=== PATIENT | male | born 1995 | race Caucasian/White ===

== ENCOUNTER 2022-07-10 22:11 | Inpatient (IN) | payer BC, SELFPAY ==
[2022-07-10 22:42] VITALS: BP 128/70; PULSE 130; TEMP 36.6; O2SAT 96
[2022-07-10] MEDS: cloNIDine HCL 0.1 MG TABLET PO (23:40)
[2022-07-10] MEDS: LORazepam 1 MG TABLET PO (23:41)
[2022-07-11 00:42] VITALS: BMI 25.0
--- NOTE | 2022-07-11 05:24 | PC.NURSE ---
admission note for 07/10/22-pt was a referral from [facility] via the [facility] ER. nurse to nurse, collateral information obtained prior to admission. legal 12B, declining to sign CV when offered. dx: unspecified schizophrenia. patient was cooperative to interview but was actively responding/preoccupied with AH although did not acknowledge this when asked. denied HI thinking but appeared guarded. slow to respond to questions, thought blocking. no significant medical history noted but did have admission heart rate of 130. provider notified and patient accepted clonidine. ALEX + for marijuana. denies alcohol or other substance use. no current medications. did accept flu shot as well as ativan at bedtime. treatment plan initiated. safety tool done. oriented to unit.
[2022-07-11 09:45] LABS: Estimated Average Glucose 97 mg/dL
--- NOTE | 2022-07-11 09:57 | HO.PSYADMNOT ---
HPI Date of Service: 07/11/22 Chief Complaint: F 31 Unspecified Schizophrenia Spectrum and Other Sources of Information: patient interviewed, chart reviewed and crisis/core team assessment reviewed HPI Subjective Notes: Valera Warning (given and understood) and Section 12B Narrative: Mr. Nugent is a 26 year-old male who was brought in by father to [facility] ED as pt reported suicidal ideation with plan to cut his wrist. Pt apparently has been presenting with paranoid and psychosis since February of this year. He recently admitted to [facility] on 06/17/22 in setting of psychosis, and suicidal ideation. In the ED, his utox is positive for cannabis. On the unit, pt reports he has been worried about the state of the world. Pt presents as suspicious and asks to verify information with him and he suspect records are not accurate. Pt explains that he worries about climate change and future of planet earth. I then reports that he thinks the world will be better off because of him. When asked in what way, pt states he thinks problems will be solve even climate change if he is not around. Pt denies any plan or intent to harm himself at this point. He reports he had just one intrusive thought when he was holding the knife to his wrist when his father stopped him and asked him to bring him to the hospital. He denies that he heard a voice telling him to hurt himself. He also denies visual or auditory hallucinations but throughout our interview, pt was mumbling and whispering things to someone who was not there. He later reported that his intrusive thought might have been a relationship issue. He mentions a partner but became paranoid when asked the name stating why do you need to know all this information? Pt reports he has not notice any change in behavior. 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 He reports he is sure I will not have these intrusive thoughts to harm myself. He states he does not want to be here in the hospital and that he can follow up with treatment in the community. Pt was given valera warning and shows understanding. Past Psychiatric History: Inpt: [facility] 06/17/2022 Medical Evaluation Reviewed: Yes [facility] Medical History No active medical problems Diagnostics Vital Signs (24Hr): Vital Signs - 24 hr 07/10/22 22:42 Temperature 97.9 F Pulse Rate 130 H Blood Pressure 128/70 Pulse Oximetry 96 Oxygen Delivery Method Room Air BMI result Body Mass Index 25.0 Labs Labs: Laboratory Results - last 48 hr 07/11/22 09:03 Estimat Average Glucose 97 Hemoglobin A1c % 5.0 Meds/Allergies Allergies Allergies Allergy/AdvReac Type Severity Reaction Status Date / Time No Known Allergies Allergy Verified 07/10/22 22:51 Mental Status Exam Mental Status Exam Narrative: Appearance: casually groomed, fair hygiene, in NAD behavior: guarded and suspicious Psychomotor: restless at times but no overt agitation or retardation noted Speech: clear, delayed in response rate, spontaneous TP: thought blocking TC: having intrusive thoughts, worried about state of the world and thinks world will be better without him AH/VH: denies but appears internally preoccupied Delusions: appears suspicious, paranoid Mood: fine Affect: constricted, fearful, hypervigilant Insight/judgment: poor x 2. Memory/cog: alert, oriented x 3. Assessment & Plan Assessment & Plan (1) Schizophrenia, acute: Status: Acute Code(s): F23 - Brief psychotic disorder Plan Mr. Nugent is a 26 year-old male with hx of psychosis and paranoid since February of this year. 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 Pt appears internally preoccupied, very suspicious, guarded, paranoid and not forthcoming with extend of delusional content. We discussed risks, benefits and alternative treatment options PLAN 1. Admit to M3, Sect 12b , 15 minutes checks 2. Offer risperidone, pt understands he can decline. 3. Obtain collateral information 4. Aftercare planning. Patient educated on: diagnosis and medication risk/benefits Informed Consent: understands Reason for continued inpatient stay Substantial Risk for: harm to self
[2022-07-11 09:58] VITALS: BP 112/65; PULSE 128; RESP 19; TEMP 36.9; O2SAT 98
[2022-07-11 10:03] LABS: Cholesterol 246 mg/dL; HDL Cholesterol 53 mg/dL; LDL Cholesterol Calculated 178 mg/dl; Magnesium 2.3 mg/dL (1.6-2.6); Triglycerides 75 mg/dL
[2022-07-11 10:19] LABS: Free T4 (Free Thyroxine) 1.38 ng/dL (0.71-1.85)
[2022-07-11 10:55] LABS: Folate 5.3 ng/mL (> or = 4.0); Vitamin B12 1144 pg/mL (200-900)
--- NOTE | 2022-07-11 12:47 | P.CONHOSP_ITS ---
History of Present Illness Data of Consult Service Date: 07/11/22 Requesting physician: Luh Joshi Primary Care Provider: Unknown Physician HPI Reason for consult: medical H&P 26-year-old male without significant medical history admitted to Psychiatry for paranoia and anxiety. He has no medical complaints. Denies any shortness of breath, chest pain, palpitations. Has been tachycardic since arrival up to 128 however has been notably anxious. EKG at [facility] from which he was transferred showed sinus tachycardia, rate 122. TSH 1.24, electrolytes within normal limits. He does smoke marijuana but denies any other illicit drug use. No alcohol use. No history of blood clots. Review of Systems Review of Systems: General: No fevers, malaise, unintentional weight loss HEENT: No blurred vision, diplopia. No sore throat, nasal congestion, rhinorrhea, sinus pain, ear pain Cardiovascular: No chest pain, palpitations, or leg edema Respiratory: No shortness of breath, wheezing, cough GI: No abdominal pain, nausea, vomiting, diarrhea, constipation, melena, hematochezia : No dysuria, hematuria, increased urinary frequency, decreased urinary output MSK: No myalgia, back pain Neuro: No headaches, weakness, paresthesias Psych: +anxiety Skin: No rashes or lesions PMFSH Medical History No active medical problems Family History (Updated 07/11/22 @ 12:50 by SAAD Hernandez) Other No pertinent family history Social History Household Members: Family Housing: House Do you presently have visiting nurse or other home services: No Patient Tobacco Use Status: Never used Tobacco e-Cigarette/Vaping Use: Never Used Substance Use Type: Marijuana Substance Use Frequency: Daily Last Used Substance: Just Prior to Admission Currently Displaying Signs/Symptoms of Drug Intoxication Withdrawal: No Have you been hit, kicked, punched, or otherwise hurt by someone within the past year? If so, by whom?: No Do you feel safe in your current relationship?: No Current Relationship Is there a partner from a previous relationship who is making you feel unsafe now?: No Are you made to feel afraid or neglected: No Spiritual Healthcare Practices: none identified Islam Healthcare Practices: none identified Cultural Healthcare Practices: none identified Advance Directives: No Advance Directives Information Provided: No Do you have thoughts of harming others: None Do you have a plan to hurt others: No Plan Recently lost weight without trying: No How much weight loss: Not applicable Eating poorly because of decreased appetite: No Nutrition screen score: 0 Nutrition Risks: No Nutritional Risk Poor oral hygiene: No service: No Sexual orientation: Straight/Heterosexual Meds Allergies Allergy/AdvReac Type Severity Reaction Status Date / Time No Known Allergies Allergy Verified 07/10/22 22:51 Active Medications: Current Medications Acetaminophen (Acetaminophen 325 Mg Tablet) 650 mg PO Q6H PRN PRN Reason: Headache/Pain Mild Scale (1-3) Al Hydroxide/Mg Hydroxide (Magnesium Hydrox/Alum Hydrox 30 Ml Oral.Susp) 30 ml PO Q6H PRN PRN Reason: Heartburn/Nausea Clonidine HCl (Clonidine Hcl 0.1 Mg Tablet) 0.1 mg PO BID PRN; Protocol PRN Reason: hyperarousal, anxiety Last Admin: 07/10/22 23:40 Dose: 0.1 mg Hydroxyzine HCl (Hydroxyzine Hcl 25 Mg Tablet) 25 mg PO Q6H PRN PRN Reason: Anxiety Lorazepam (Lorazepam 1 Mg Tablet) 1 mg PO BID PRN PRN Reason: anxiety, agitation Last Admin: 07/10/22 23:41 Dose: 1 mg Magnesium Hydroxide (Milk Of Magnesia 30 Ml Oral.Susp) 30 ml PO DAILY PRN PRN Reason: Constipation Risperidone (Risperidone 0.5 Mg Tablet) 0.5 mg PO BID PRN PRN Reason: paranoia, agitation, psychosis Trazodone HCl (Trazodone Hcl 50 Mg Tablet) 50 mg PO BEDTIME PRN PRN Reason: Insomnia Physical Exam Vital Signs and Narrative: Vital Signs: Last Vital Signs Temp 98.5 F 07/11/22 09:58 Pulse 128 H 07/11/22 09:58 Resp 19 07/11/22 09:58 BP 112/65 07/11/22 09:58 Pulse Ox 98 07/11/22 09:58 O2 Del Method 07/11/22 09:58 BMI result Body Mass Index 25.0 Constitutional - Awake and Alert, No apparent distress Eyes - PERRLA, EOMI Cardiovascular - S1S2, tachycardic, regular rhythm, No edema Respiratory - Normal lung expansion, Normal respiratory effort, No respiratory distress, CTA bilaterally Gastrointestinal - NT / ND; +BS; No rebound or guarding Extremities - no calf tenderness bilaterally, no swelling Musculoskeletal - Normal inspection, normal ROM Skin - Warm/Dry Neurological - Alert & oriented x3, CN II-XII in tact, 5/5 strength BUE and BLE Psychological - Appropriate affect Results Labs Labs: Laboratory Results - last 24 hr 07/11/22 07/11/22 07/11/22 09:03 09:03 09:03 Estimat Average Glucose 97 Hemoglobin A1c % 5.0 Magnesium 2.3 Triglycerides 75 Cholesterol 246 LDL Cholesterol, Calc 178 HDL Cholesterol 53 Vitamin B12 1144 H Folate 5.3 TSH 1.20 Free T4 1.38 Assessment and Plan (1) Paranoia: Status: Acute (2) Anxiety: Status: Acute (3) Tachycardia: Status: Acute Plan 26-year-old male without significant medical history admitted to Psychiatry for paranoia and anxiety with consult placed for medical H&P. # anxiety/paranoia -plan per Psychiatry # sinus tachycardia-likely etiology anxiety -HR on exam ranging 100-122 manual radial pulse is -EKG at [facility] showed sinus tach, rate 108, no ST/T-wave abnormalities -thyroid function normal, electrolytes normal, no anemia -patient declines further lab work at this time and refuses additional EKG. Recommend treating anxiety, and following heart rate. Discussed with the patient if no improvement, further workup should be done. He is asymptomatic at this time and is advised to contact staff if he develops any shortness of breath, chest pain, palpitations, or lightheadedness. Again this is likely related to his anxiety/paranoia. Thank you for allowing me to participate in this consult. Signing off at this time. Please do not hesitate to call for further questions. COnsult PRN if no imrpovements in heart rate once anxiety/paranoia is better controlled.
[2022-07-11 20:10] VITALS: BP 111/69; PULSE 118; RESP 16; O2SAT 99
[2022-07-12 08:00] VITALS: BP 106/80; PULSE 96; TEMP 36.6; O2SAT 97
--- NOTE | 2022-07-12 12:17 | P.PNPSI_ITS ---
Subjective Subjective Date of Service: 07/12/22 Reason For Visit: F 31 Unspecified Schizophrenia Spectrum and Other Subjective Notes: Section 12B Interim History: Pt reports he does not think he needs to be here. He reports he only had one intrusive thought when holding a knife. He reports 3 weeks ago when he had similar situation he also had an Intrusive thought and again hold a knife. He reports both times his parents intervened and brought him to the hospital. He declines any treatment stating I don't need it. He asked nurse last night if he was expected to have sex with anyone. When asked today, he states I know this is a hospital, but do I have to have sex with anyone? Today he denies any plan or intent to hurt himself but is not able to explain what is different. Pt mumbles to someone who is not there, when asked pt very guarded. He states he does not understand why this expert medical writer or others are concern about him holding a knife and trying to harm himself. He states I will not have those thoughts again, yet not able to explain how he has had them twice in less than one month. Review of Systems Review of Systems General: No fevers, malaise, unintentional weight loss HEENT: No blurred vision, diplopia. No sore throat, nasal congestion, rhinorrhea, sinus pain, ear pain Cardiovascular: No chest pain, palpitations, or leg edema Respiratory: No shortness of breath, wheezing, cough GI: No abdominal pain, nausea, vomiting, diarrhea, constipation, melena, hematochezia : No dysuria, hematuria, increased urinary frequency, decreased urinary output MSK: No myalgia, back pain Neuro: No headaches, weakness, paresthesias Psych: +anxiety Skin: No rashes or lesions Yes all other systems are reviewed and are negative Mental Status Exam Mental Status Exam Narrative: Appearance: casually groomed, fair hygiene, in NAD behavior: guarded and suspicious Psychomotor: restless at times but no overt agitation or retardation noted Speech: clear, delayed in response rate, spontaneous TP: thought blocking TC: having intrusive thoughts, worried about state of the world and thinks world will be better without him AH/VH: denies but appears internally preoccupied Delusions: appears suspicious, paranoid Mood: fine Affect: constricted, fearful, hypervigilant Insight/judgment: poor x 2. Memory/cog: alert, oriented x 3. Diagnostics Vital Signs (24Hr): Vital Signs - 24 hr 07/12/22 20:05 Temperature 98.4 F Pulse Rate 119 H Respiratory Rate 18 Blood Pressure 120/76 Pulse Oximetry 100 Oxygen Delivery Method Room Air BMI result Body Mass Index 25.0 Labs Labs: Laboratory Results - last 48 hr 07/11/22 07/11/22 07/11/22 09:03 09:03 09:03 Estimat Average Glucose 97 Hemoglobin A1c % 5.0 Magnesium 2.3 Triglycerides 75 Cholesterol 246 LDL Cholesterol, Calc 178 HDL Cholesterol 53 Vitamin B12 1144 H Folate 5.3 TSH 1.20 Free T4 1.38 Medications Medications Current Medications Acetaminophen (Acetaminophen 325 Mg Tablet) 650 mg PO Q6H PRN PRN Reason: Headache/Pain Mild Scale (1-3) Al Hydroxide/Mg Hydroxide (Magnesium Hydrox/Alum Hydrox 30 Ml Oral.Susp) 30 ml PO Q6H PRN PRN Reason: Heartburn/Nausea Clonidine HCl (Clonidine Hcl 0.1 Mg Tablet) 0.1 mg PO BID PRN; Protocol PRN Reason: hyperarousal, anxiety Last Admin: 07/12/22 21:06 Dose: 0.1 mg Hydroxyzine HCl (Hydroxyzine Hcl 25 Mg Tablet) 25 mg PO Q6H PRN PRN Reason: Anxiety Lorazepam (Lorazepam 1 Mg Tablet) 1 mg PO BID PRN PRN Reason: anxiety, agitation Last Admin: 07/10/22 23:41 Dose: 1 mg Magnesium Hydroxide (Milk Of Magnesia 30 Ml Oral.Susp) 30 ml PO DAILY PRN PRN Reason: Constipation Risperidone (Risperidone 0.5 Mg Tablet) 0.5 mg PO BID PRN PRN Reason: paranoia, agitation, psychosis Risperidone (Risperidone 1 Mg Tablet) 1 mg PO BID ACE Last Admin: 07/12/22 21:25 Dose: Not Given Trazodone HCl (Trazodone Hcl 50 Mg Tablet) 50 mg PO BEDTIME PRN PRN Reason: Insomnia Allergies Allergies Allergy/AdvReac Type Severity Reaction Status Date / Time No Known Allergies Allergy Verified 07/10/22 22:51 Assessment & Plan Assessment & Plan (1) Schizophrenia, acute: Status: Acute Code(s): F23 - Brief psychotic disorder Plan Mr. Nugent is a 26 year-old male with hx of psychosis and paranoid since February of this year. 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 Pt appears internally preoccupied, very suspicious, guarded, paranoid and not forthcoming with extend of delusional content. We discussed risks, benefits and alternative treatment options PLAN 1. Admit to M3, Sect 12b , 15 minutes checks 2. Offer risperidone, pt understands he can decline. 3. Obtain collateral information 4. Aftercare planning. 07/12 continue current tx. offer risperidone but pt understand he can refuse. significant concern as to pt not being fully forthcoming with extend of delusions, he is internally preoccupied, although he denies hearing voices. Concern that as long as he is severely psychotic risk of harming self is high. I spent minutes with the patient and/or on the patient floor today, greater than?50% of which was spent counseling/coordinating care. Reason for contiued inpatient stay Substantial Risk for: harm to self and inability to function
[2022-07-12 20:05] VITALS: BP 120/76; PULSE 119; RESP 18; TEMP 36.9; O2SAT 100
[2022-07-12] MEDS: cloNIDine HCL 0.1 MG TABLET PO (21:06)
[2022-07-13 09:35] VITALS: BP 118/72; PULSE 113; TEMP 36.6; O2SAT 97
--- NOTE | 2022-07-13 12:29 | HO.PSYCHPN ---
Subjective Subjective Date of Service: 07/13/22 Reason For Visit: F 31 Unspecified Schizophrenia Spectrum and Other Subjective Notes: Section 7 Interim History: Pt asking for discharge as sect 12b is up today. Pt informed that team is concern about ongoing psycosis and delusional thinking which without treatment can quickly lead to again having CAH as he has had twice in the past 3 weeks. Pt calm, disappointed but no agitation or aggression. Pt seen staring at the door, talking to himself. He denies hearing voices but clearly responding to internal stimuli. Medication Compliance: No Side effects from medications: No Attending Groups: No Review of Systems Review of Systems General: No fevers, malaise, unintentional weight loss HEENT: No blurred vision, diplopia. No sore throat, nasal congestion, rhinorrhea, sinus pain, ear pain Cardiovascular: No chest pain, palpitations, or leg edema Respiratory: No shortness of breath, wheezing, cough GI: No abdominal pain, nausea, vomiting, diarrhea, constipation, melena, hematochezia : No dysuria, hematuria, increased urinary frequency, decreased urinary output MSK: No myalgia, back pain Neuro: No headaches, weakness, paresthesias Psych: +anxiety Skin: No rashes or lesions Yes all other systems are reviewed and are negative Mental Status Exam Mental Status Exam Narrative: Appearance: casually groomed, fair hygiene, in NAD behavior: guarded and suspicious Psychomotor: restless at times but no overt agitation or retardation noted Speech: clear, delayed in response rate, spontaneous TP: thought blocking TC: having intrusive thoughts, worried about state of the world and thinks world will be better without him AH/VH: denies but appears internally preoccupied Delusions: appears suspicious, paranoid Mood: fine Affect: constricted, fearful, hypervigilant Insight/judgment: poor x 2. Memory/cog: alert, oriented x 3. Diagnostics Vital Signs (24Hr): Vital Signs - 24 hr 07/13/22 09:35 07/13/22 23:00 Temperature 97.9 F 97.6 F Pulse Rate 113 H 110 H Blood Pressure 118/72 124/69 Pulse Oximetry 97 97 Oxygen Delivery Method Room Air Room Air BMI result Body Mass Index 25.0 Medications Medications Current Medications Acetaminophen (Acetaminophen 325 Mg Tablet) 650 mg PO Q6H PRN PRN Reason: Headache/Pain Mild Scale (1-3) Al Hydroxide/Mg Hydroxide (Magnesium Hydrox/Alum Hydrox 30 Ml Oral.Susp) 30 ml PO Q6H PRN PRN Reason: Heartburn/Nausea Clonidine HCl (Clonidine Hcl 0.1 Mg Tablet) 0.1 mg PO BID PRN; Protocol PRN Reason: hyperarousal, anxiety Last Admin: 07/12/22 21:06 Dose: 0.1 mg Hydroxyzine HCl (Hydroxyzine Hcl 25 Mg Tablet) 25 mg PO Q6H PRN PRN Reason: Anxiety Lorazepam (Lorazepam 1 Mg Tablet) 1 mg PO BID PRN PRN Reason: anxiety, agitation Last Admin: 07/10/22 23:41 Dose: 1 mg Magnesium Hydroxide (Milk Of Magnesia 30 Ml Oral.Susp) 30 ml PO DAILY PRN PRN Reason: Constipation Risperidone (Risperidone 0.5 Mg Tablet) 0.5 mg PO BID PRN PRN Reason: paranoia, agitation, psychosis Risperidone (Risperidone 1 Mg Tablet) 1 mg PO BID ACE Last Admin: 07/14/22 00:34 Dose: Not Given Trazodone HCl (Trazodone Hcl 50 Mg Tablet) 50 mg PO BEDTIME PRN PRN Reason: Insomnia Allergies Allergies Allergy/AdvReac Type Severity Reaction Status Date / Time No Known Allergies Allergy Verified 07/10/22 22:51 Assessment & Plan Assessment & Plan (1) Schizophrenia, acute: Status: Acute Code(s): F23 - Brief psychotic disorder Plan Mr. Nugent is a 26 year-old male with hx of psychosis and paranoid since February of this year. 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 Pt appears internally preoccupied, very suspicious, guarded, paranoid and not forthcoming with extend of delusional content. We discussed risks, benefits and alternative treatment options PLAN 1. Admit to M3, Sect 12b , 15 minutes checks 2. Offer risperidone, pt understands he can decline. 3. Obtain collateral information 4. Aftercare planning. 07/12 continue current tx. offer risperidone but pt understand he can refuse. significant concern as to pt not being fully forthcoming with extend of delusions, he is internally preoccupied, although he denies hearing voices. Concern that as long as he is severely psychotic risk of harming self is high. 07/13 continue tx. petition sent to court, pt currently on sect 7, pending court hearing. I spent minutes with the patient and/or on the patient floor today, greater than?50% of which was spent counseling/coordinating care. Reason for contiued inpatient stay Substantial Risk for: harm to self and inability to function
[2022-07-13 23:00] VITALS: BP 124/69; PULSE 110; TEMP 36.4; O2SAT 97
--- NOTE | 2022-07-14 00:51 | HO.PSYCHPN ---
Subjective Subjective Date of Service: 07/14/22 Reason For Visit: F 31 Unspecified Schizophrenia Spectrum and Other Subjective Notes: [place] Warning and Section 7 Interim History: Discussed with team. Pt is responding to internal stimuli, there is a question of him cheeking his risperdal, will switch to liquid to promote adherence, on section 7. Pt says the only thing is I want to leave, I've been here too long. Discussed the circumstances of his admission i.e. precipitating factors, crisis eval, pt says it doesnt make sense. Denies having command hallucinations. States he is depressed being here, very sad being here. Denies SI. Medication Compliance: Intermittent Side effects from medications: No Attending Groups: No Review of Systems Acute medical concerns: No Medical Review of Systems: unchanged Mental Status Exam Mental Status Exam Narrative: Appearance: casually groomed, fair hygiene, in NAD behavior: guarded and suspicious Psychomotor: restless at times but no overt agitation or retardation noted Speech: clear, delayed in response rate, spontaneous TP: thought blocking TC: having intrusive thoughts, worried about state of the world and thinks world will be better without him AH/VH: denies but appears internally preoccupied Delusions: appears suspicious, paranoid Mood: fine Affect: constricted, fearful, hypervigilant Insight/judgment: poor x 2. Memory/cog: alert, oriented x 3. Diagnostics Vital Signs (24Hr): Vital Signs - 24 hr 07/13/22 09:35 Temperature 97.9 F Pulse Rate 113 H Blood Pressure 118/72 Pulse Oximetry 97 Oxygen Delivery Method Room Air BMI result Body Mass Index 25.0 Medications Medications Current Medications Acetaminophen (Acetaminophen 325 Mg Tablet) 650 mg PO Q6H PRN PRN Reason: Headache/Pain Mild Scale (1-3) Al Hydroxide/Mg Hydroxide (Magnesium Hydrox/Alum Hydrox 30 Ml Oral.Susp) 30 ml PO Q6H PRN PRN Reason: Heartburn/Nausea Clonidine HCl (Clonidine Hcl 0.1 Mg Tablet) 0.1 mg PO BID PRN; Protocol PRN Reason: hyperarousal, anxiety Last Admin: 07/12/22 21:06 Dose: 0.1 mg Hydroxyzine HCl (Hydroxyzine Hcl 25 Mg Tablet) 25 mg PO Q6H PRN PRN Reason: Anxiety Lorazepam (Lorazepam 1 Mg Tablet) 1 mg PO BID PRN PRN Reason: anxiety, agitation Last Admin: 07/10/22 23:41 Dose: 1 mg Magnesium Hydroxide (Milk Of Magnesia 30 Ml Oral.Susp) 30 ml PO DAILY PRN PRN Reason: Constipation Risperidone (Risperidone 0.5 Mg Tablet) 0.5 mg PO BID PRN PRN Reason: paranoia, agitation, psychosis Risperidone (Risperidone 1 Mg Tablet) 1 mg PO BID ACE Last Admin: 07/14/22 00:34 Dose: Not Given Trazodone HCl (Trazodone Hcl 50 Mg Tablet) 50 mg PO BEDTIME PRN PRN Reason: Insomnia Allergies Allergies Allergy/AdvReac Type Severity Reaction Status Date / Time No Known Allergies Allergy Verified 07/10/22 22:51 Assessment & Plan Assessment & Plan (1) Schizophrenia, acute: Status: Acute Code(s): F23 - Brief psychotic disorder Plan Mr. Nugent is a 26 year-old male with hx of psychosis and paranoid since February of this year. 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 Pt appears internally preoccupied, very suspicious, guarded, paranoid and not forthcoming with extend of delusional content. We discussed risks, benefits and alternative treatment options PLAN 1. Admit to M3, Sect 12b , 15 minutes checks 2. Offer risperidone, pt understands he can decline. 3. Obtain collateral information 4. Aftercare planning. 07/12 continue current tx. offer risperidone but pt understand he can refuse. significant concern as to pt not being fully forthcoming with extend of delusions, he is internally preoccupied, although he denies hearing voices. Concern that as long as he is severely psychotic risk of harming self is high. 07/13 continue tx. petition sent to court, pt currently on sect 7, pending court hearing. 07/14 Continue tx, change risperdal to liquid formulation to promote adherence I spent minutes with the patient and/or on the patient floor today, greater than?50% of which was spent counseling/coordinating care. Patient educated on: medication risk/benefits and other Reason for contiued inpatient stay Substantial Risk for: inability to function, rapid decompensation and med/psych decompensation
[2022-07-14 09:00] VITALS: BP 133/82; PULSE 105; RESP 18; TEMP 36.7; O2SAT 99
[2022-07-14] MEDS: risperiDONE 1 MG TABLET PO (09:15)
[2022-07-14 21:20] VITALS: BP 143/81; PULSE 126; TEMP 36.6; O2SAT 100
[2022-07-14] MEDS: risperiDONE Oral Sol 1 MG/ML SOLUTION PO (21:20)
--- NOTE | 2022-07-15 01:48 | P.PNPSI_ITS ---
Subjective Subjective Date of Service: 07/15/22 Reason For Visit: F 31 Unspecified Schizophrenia Spectrum and Other Subjective Notes: [place] Warning and Section 7 Interim History: Discussed with team. Spoke with pt. He says he feels worse being here, focused on wanting to discharge. I dont know the purpose of why im still here. Says risperdal helps me sleep a little bit, but feels drowsy. Today he is visible, med adherent. Says he is sleeping. Denies AH, some paranoia, suspicious. Denies anxiety. Denies SI, I would never do that. Mental Status Exam Mental Status Exam Narrative: Appearance: casually groomed, fair hygiene, in NAD behavior: guarded and suspicious Psychomotor: restless at times but no overt agitation or retardation noted Speech: clear, delayed in response rate, spontaneous TP: thought blocking TC: having intrusive thoughts, worried about state of the world and thinks world will be better without him AH/VH: denies but appears internally preoccupied Delusions: appears suspicious, paranoid Mood: fine Affect: constricted, fearful, hypervigilant Insight/judgment: poor x 2. Memory/cog: alert, oriented x 3 Diagnostics Vital Signs (24Hr): Vital Signs - 24 hr 07/14/22 09:00 07/14/22 21:20 Temperature 98.0 F 97.8 F Pulse Rate 105 H 126 H Respiratory Rate 18 Blood Pressure 133/82 143/81 H Pulse Oximetry 99 100 Oxygen Delivery Method Room Air Room Air BMI result Body Mass Index 25.0 Medications Medications Current Medications Acetaminophen (Acetaminophen 325 Mg Tablet) 650 mg PO Q6H PRN PRN Reason: Headache/Pain Mild Scale (1-3) Al Hydroxide/Mg Hydroxide (Magnesium Hydrox/Alum Hydrox 30 Ml Oral.Susp) 30 ml PO Q6H PRN PRN Reason: Heartburn/Nausea Clonidine HCl (Clonidine Hcl 0.1 Mg Tablet) 0.1 mg PO BID PRN; Protocol PRN Reason: hyperarousal, anxiety Last Admin: 07/12/22 21:06 Dose: 0.1 mg Hydroxyzine HCl (Hydroxyzine Hcl 25 Mg Tablet) 25 mg PO Q6H PRN PRN Reason: Anxiety Lorazepam (Lorazepam 1 Mg Tablet) 1 mg PO BID PRN PRN Reason: anxiety, agitation Last Admin: 11/15/22 23:41 Dose: 1 mg Magnesium Hydroxide (Milk Of Magnesia 30 Ml Oral.Susp) 30 ml PO DAILY PRN PRN Reason: Constipation Risperidone (Risperidone 0.5 Mg Tablet) 0.5 mg PO BID PRN PRN Reason: paranoia, agitation, psychosis Risperidone (Risperidone Oral Keerthi 1 Mg/Ml Solution) 1 mg PO BID ACE Last Admin: 07/14/22 21:20 Dose: 1 mg Trazodone HCl (Trazodone Hcl 50 Mg Tablet) 50 mg PO BEDTIME PRN PRN Reason: Insomnia Allergies Allergies Allergy/AdvReac Type Severity Reaction Status Date / Time No Known Allergies Allergy Verified 07/10/22 22:51 Assessment & Plan Assessment & Plan (1) Schizophrenia, acute: Status: Acute Code(s): F23 - Brief psychotic disorder Plan Mr. Nugent is a 26 year-old male with hx of psychosis and paranoid since February of this year. 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 Pt appears internally preoccupied, very suspicious, guarded, paranoid and not forthcoming with extend of delusional content. We discussed risks, benefits and alternative treatment options PLAN 1. Admit to M3, Sect 12b , 15 minutes checks 2. Offer risperidone, pt understands he can decline. 3. Obtain collateral information 4. Aftercare planning. 07/12 continue current tx. offer risperidone but pt understand he can refuse. significant concern as to pt not being fully forthcoming with extend of delusions, he is internally preoccupied, although he denies hearing voices. Concern that as long as he is severely psychotic risk of harming self is high. 07/13 continue tx. petition sent to court, pt currently on sect 7, pending court hearing. 07/14 Continue tx, change risperdal to liquid formulation to promote adherence 07/15 monitor risperdal for benefit I spent minutes with the patient and/or on the patient floor today, greater than?50% of which was spent counseling/coordinating care. Patient educated on: medication risk/benefits and therapeutic strategies Reason for contiued inpatient stay Substantial Risk for: rapid decompensation and med/psych decompensation
[2022-07-15 10:00] VITALS: BP 116/63; PULSE 131; RESP 18; TEMP 36.4; O2SAT 99
[2022-07-15] MEDS: risperiDONE Oral Sol 1 MG/ML SOLUTION PO ×2 (10:22→21:46)
[2022-07-15 18:20] VITALS: BP 133/70; PULSE 113; RESP 16; TEMP 36.4; O2SAT 100
[2022-07-16 06:00] VITALS: BP 128/84; PULSE 108; RESP 18; TEMP 36.6; O2SAT 99
[2022-07-16] MEDS: risperiDONE Oral Sol 1 MG/ML SOLUTION PO ×2 (10:05→21:58)
--- NOTE | 2022-07-16 13:36 | P.PNPSI_ITS ---
Subjective Subjective Date of Service: 07/16/22 Reason For Visit: F 31 Unspecified Schizophrenia Spectrum and Other Subjective Notes: Section 7 Interim History: Pt seen with his mother. Pt continues to present with little to no insight as to why he was brought to the hospital and concern that family and treatment team have in terms of underlying psychosis and delusions triggering intermittent thoughts or CAH to harm himself. Pt has been taking risperidone. Today, pt less talking to himself or talking to someone who is not there. He denies SI/HI. Still appears not forthcoming with extend of delusional content. His ability to process information is slightly better today. Medication Compliance: Yes Side effects from medications: No Attending Groups: No Review of Systems Review of Systems General: No fevers, malaise, unintentional weight loss HEENT: No blurred vision, diplopia. No sore throat, nasal congestion, rhinorrhea, sinus pain, ear pain Cardiovascular: No chest pain, palpitations, or leg edema Respiratory: No shortness of breath, wheezing, cough GI: No abdominal pain, nausea, vomiting, diarrhea, constipation, melena, hematochezia : No dysuria, hematuria, increased urinary frequency, decreased urinary output MSK: No myalgia, back pain Neuro: No headaches, weakness, paresthesias Psych: +anxiety Skin: No rashes or lesions Yes all other systems are reviewed and are negative Mental Status Exam Mental Status Exam Narrative: Appearance: casually groomed, fair hygiene, in NAD behavior: guarded and suspicious Psychomotor: restless at times but no overt agitation or retardation noted Speech: clear, delayed in response rate, spontaneous TP: thought blocking TC: having intrusive thoughts, worried about state of the world and thinks world will be better without him AH/VH: denies but appears internally preoccupied Delusions: appears suspicious, paranoid Mood: fine Affect: constricted, fearful, hypervigilant Insight/judgment: poor x 2. Memory/cog: alert, oriented x 3 Diagnostics Vital Signs (24Hr): Vital Signs - 24 hr 07/16/22 22:02 Temperature 97.6 F Pulse Rate 108 H Blood Pressure 143/90 H Pulse Oximetry 98 Oxygen Delivery Method Room Air BMI result Body Mass Index 25.0 Medications Medications Current Medications Acetaminophen (Acetaminophen 325 Mg Tablet) 650 mg PO Q6H PRN PRN Reason: Headache/Pain Mild Scale (1-3) Al Hydroxide/Mg Hydroxide (Magnesium Hydrox/Alum Hydrox 30 Ml Oral.Susp) 30 ml PO Q6H PRN PRN Reason: Heartburn/Nausea Clonidine HCl (Clonidine Hcl 0.1 Mg Tablet) 0.1 mg PO BID PRN; Protocol PRN Reason: hyperarousal, anxiety Last Admin: 07/12/22 21:06 Dose: 0.1 mg Hydroxyzine HCl (Hydroxyzine Hcl 25 Mg Tablet) 25 mg PO Q6H PRN PRN Reason: Anxiety Magnesium Hydroxide (Milk Of Magnesia 30 Ml Oral.Susp) 30 ml PO DAILY PRN PRN Reason: Constipation Risperidone (Risperidone 0.5 Mg Tablet) 0.5 mg PO BID PRN PRN Reason: paranoia, agitation, psychosis Risperidone (Risperidone Oral Keerthi 1 Mg/Ml Solution) 1 mg PO BID ACE Last Admin: 07/16/22 21:58 Dose: 1 mg Trazodone HCl (Trazodone Hcl 50 Mg Tablet) 50 mg PO BEDTIME PRN PRN Reason: Insomnia Allergies Allergies Allergy/AdvReac Type Severity Reaction Status Date / Time No Known Allergies Allergy Verified 07/10/22 22:51 Assessment & Plan Assessment & Plan (1) Schizophrenia, acute: Status: Acute Code(s): F23 - Brief psychotic disorder Plan Mr. Nugent is a 26 year-old male with hx of psychosis and paranoid since February of this year. 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 Pt appears internally preoccupied, very suspicious, guarded, paranoid and not forthcoming with extend of delusional content. We discussed risks, benefits and alternative treatment options PLAN 1. Admit to M3, Sect 12b , 15 minutes checks 2. Offer risperidone, pt understands he can decline. 3. Obtain collateral information 4. Aftercare planning. 07/12 continue current tx. offer risperidone but pt understand he can refuse. significant concern as to pt not being fully forthcoming with extend of delusions, he is internally preoccupied, although he denies hearing voices. Concern that as long as he is severely psychotic risk of harming self is high. 07/13 continue tx. petition sent to court, pt currently on sect 7, pending court hearing. 07/14 Continue tx, change risperdal to liquid formulation to promote adherence 07/15 monitor risperdal for benefit 07/16 continue tx. I spent minutes with the patient and/or on the patient floor today, greater than?50% of which was spent counseling/coordinating care. Reason for contiued inpatient stay Substantial Risk for: harm to self and inability to function
[2022-07-16 22:02] VITALS: BP 143/90; PULSE 108; TEMP 36.4; O2SAT 98
[2022-07-17] MEDS: risperiDONE Oral Sol 1 MG/ML SOLUTION PO (09:46)
--- NOTE | 2022-07-17 14:32 | P.PNPSI_ITS ---
Subjective Subjective Date of Service: 07/17/22 Reason For Visit: F 31 Unspecified Schizophrenia Spectrum and Other Subjective Notes: Section 7 Interim History: Pt appears responding less to internal stimuli. He is not mumbling or talking to someone who is not there. He shows slightly increase insight in that he says that he thought he had to sacrify himself for the world and this was the underlying idea behind his suicide attempt. He states now looking back this sound crazy, I know, but at the time that's what I thought was going on. He reports maybe I had psychosis, and need medication. Pt reports fair sleep. he states he is trying to go to every single group. denies side effects with medications. Medication Compliance: Yes Side effects from medications: No Attending Groups: Yes Review of Systems Review of Systems General: No fevers, malaise, unintentional weight loss HEENT: No blurred vision, diplopia. No sore throat, nasal congestion, rhinorrhea, sinus pain, ear pain Cardiovascular: No chest pain, palpitations, or leg edema Respiratory: No shortness of breath, wheezing, cough GI: No abdominal pain, nausea, vomiting, diarrhea, constipation, melena, hematochezia : No dysuria, hematuria, increased urinary frequency, decreased urinary output MSK: No myalgia, back pain Neuro: No headaches, weakness, paresthesias Psych: +anxiety Skin: No rashes or lesions Yes all other systems are reviewed and are negative Mental Status Exam Mental Status Exam Narrative: Appearance: casually groomed, fair hygiene, in NAD behavior: guarded and suspicious Psychomotor: restless at times but no overt agitation or retardation noted Speech: clear, delayed in response rate, spontaneous TP: thought blocking TC: having intrusive thoughts, worried about state of the world and thinks world will be better without him AH/VH: denies but appears internally preoccupied Delusions: appears suspicious, paranoid Mood: fine Affect: constricted, fearful, hypervigilant Insight/judgment: poor x 2. Memory/cog: alert, oriented x 3 Diagnostics Vital Signs (24Hr): Vital Signs - 24 hr 07/17/22 20:19 07/18/22 08:00 Temperature 98.1 F 97.0 F Pulse Rate 115 H 97 Respiratory Rate 16 18 Blood Pressure 119/68 126/72 Pulse Oximetry 97 100 Oxygen Delivery Method Room Air Room Air BMI result Body Mass Index 25.0 Medications Medications Current Medications Acetaminophen (Acetaminophen 325 Mg Tablet) 650 mg PO Q6H PRN PRN Reason: Headache/Pain Mild Scale (1-3) Al Hydroxide/Mg Hydroxide (Magnesium Hydrox/Alum Hydrox 30 Ml Oral.Susp) 30 ml PO Q6H PRN PRN Reason: Heartburn/Nausea Clonidine HCl (Clonidine Hcl 0.1 Mg Tablet) 0.1 mg PO BID PRN; Protocol PRN Reason: hyperarousal, anxiety Last Admin: 07/12/22 21:06 Dose: 0.1 mg Hydroxyzine HCl (Hydroxyzine Hcl 25 Mg Tablet) 25 mg PO Q6H PRN PRN Reason: Anxiety Magnesium Hydroxide (Milk Of Magnesia 30 Ml Oral.Susp) 30 ml PO DAILY PRN PRN Reason: Constipation Risperidone (Risperidone 0.5 Mg Tablet) 0.5 mg PO BID PRN PRN Reason: paranoia, agitation, psychosis Risperidone (Risperidone Oral Keerthi 1 Mg/Ml Solution) 2 mg PO BEDTIME ACE Last Admin: 07/17/22 22:32 Dose: 2 mg Risperidone (Risperidone Oral Keerthi 1 Mg/Ml Solution) 1 mg PO DAILY [facility] Last Admin: 07/17/22 09:46 Dose: 1 mg Trazodone HCl (Trazodone Hcl 50 Mg Tablet) 50 mg PO BEDTIME PRN PRN Reason: Insomnia Allergies Allergies Allergy/AdvReac Type Severity Reaction Status Date / Time No Known Allergies Allergy Verified 07/10/22 22:51 Assessment & Plan Assessment & Plan (1) Schizophrenia, acute: Status: Acute Code(s): F23 - Brief psychotic disorder Plan Mr. Nugent is a 26 year-old male with hx of psychosis and paranoid since February of this year. 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 Pt appears internally preoccupied, very suspicious, guarded, paranoid and not forthcoming with extend of delusional content. We discussed risks, benefits and alternative treatment options PLAN 1. Admit to M3, Sect 12b , 15 minutes checks 2. Offer risperidone, pt understands he can decline. 3. Obtain collateral information 4. Aftercare planning. 07/12 continue current tx. offer risperidone but pt understand he can refuse. significant concern as to pt not being fully forthcoming with extend of delusions, he is internally preoccupied, although he denies hearing voices. Concern that as long as he is severely psychotic risk of harming self is high. 07/13 continue tx. petition sent to court, pt currently on sect 7, pending court hearing. 07/14 Continue tx, change risperdal to liquid formulation to promote adherence 07/15 monitor risperdal for benefit 07/16 continue tx. 07/17 continue risperidone 1mg po daily and 2mg po qhs. I spent minutes with the patient and/or on the patient floor today, greater than?50% of which was spent counseling/coordinating care. Reason for contiued inpatient stay Substantial Risk for: harm to self and inability to function
[2022-07-17 20:19] VITALS: BP 119/68; PULSE 115; RESP 16; TEMP 36.7; O2SAT 97
[2022-07-17] MEDS: risperiDONE Oral Sol 1 MG/ML SOLUTION 2 MG PO (22:32)
[2022-07-18 08:00] VITALS: BP 126/72; PULSE 97; RESP 18; TEMP 36.1; O2SAT 100
[2022-07-18] MEDS: risperiDONE Oral Sol 1 MG/ML SOLUTION PO (09:46)
--- NOTE | 2022-07-18 12:27 | P.PNPSI_ITS ---
Subjective Subjective Date of Service: 07/18/22 Reason For Visit: F 31 Unspecified Schizophrenia Spectrum and Other Subjective Notes: Section 7 Interim History: Pt less talking to himself. He reports he thought he had to sacrify himself for the world, some insight that this doesn't make much sense but still not completely convinced that he needs medications. Pt more aware of his surrounding. No SI/HI. No signs of aggression towards self or others. Medication Compliance: Yes Side effects from medications: No Attending Groups: Yes Review of Systems Review of Systems General: No fevers, malaise, unintentional weight loss HEENT: No blurred vision, diplopia. No sore throat, nasal congestion, rhinorrhea, sinus pain, ear pain Cardiovascular: No chest pain, palpitations, or leg edema Respiratory: No shortness of breath, wheezing, cough GI: No abdominal pain, nausea, vomiting, diarrhea, constipation, melena, he matochezia : No dysuria, hematuria, increased urinary frequency, decreased urinary output MSK: No myalgia, back pain Neuro: No headaches, weakness, paresthesias Psych: +anxiety Skin: No rashes or lesions Yes all other systems are reviewed and are negative Mental Status Exam Mental Status Exam Narrative: Appearance: casually groomed, fair hygiene, in NAD behavior: guarded and suspicious Psychomotor: restless at times but no overt agitation or retardation noted Speech: clear, delayed in response rate, spontaneous TP: thought blocking TC: having intrusive thoughts, worried about state of the world and thinks world will be better without him AH/VH: denies but appears internally preoccupied Delusions: appears suspicious, paranoid Mood: fine Affect: constricted, fearful, hypervigilant Insight/judgment: poor x 2. Memory/cog: alert, oriented x 3 Diagnostics Vital Signs (24Hr): Vital Signs - 24 hr 07/19/22 18:00 Temperature 98.8 F Pulse Rate 104 H Blood Pressure 118/68 Pulse Oximetry 99 Oxygen Delivery Method Room Air BMI result Body Mass Index 25.8 Medications Medications Current Medications Acetaminophen (Acetaminophen 325 Mg Tablet) 650 mg PO Q6H PRN PRN Reason: Headache/Pain Mild Scale (1-3) Al Hydroxide/Mg Hydroxide (Magnesium Hydrox/Alum Hydrox 30 Ml Oral.Susp) 30 ml PO Q6H PRN PRN Reason: Heartburn/Nausea Clonidine HCl (Clonidine Hcl 0.1 Mg Tablet) 0.1 mg PO BID PRN; Protocol PRN Reason: hyperarousal, anxiety Last Admin: 07/12/22 21:06 Dose: 0.1 mg Hydroxyzine HCl (Hydroxyzine Hcl 25 Mg Tablet) 25 mg PO Q6H PRN PRN Reason: Anxiety Magnesium Hydroxide (Milk Of Magnesia 30 Ml Oral.Susp) 30 ml PO DAILY PRN PRN Reason: Constipation Risperidone (Risperidone 0.5 Mg Tablet) 0.5 mg PO BID PRN PRN Reason: paranoia, agitation, psychosis Risperidone (Risperidone Oral Keerthi 1 Mg/Ml Solution) 3 mg PO BEDTIME ACE Last Admin: 07/19/22 22:19 Dose: 3 mg Trazodone HCl (Trazodone Hcl 50 Mg Tablet) 50 mg PO BEDTIME PRN PRN Reason: Insomnia Allergies Allergies Allergy/AdvReac Type Severity Reaction Status Date / Time No Known Allergies Allergy Verified 07/10/22 22:51 Assessment & Plan Assessment & Plan (1) Schizophrenia, acute: Status: Acute Code(s): F23 - Brief psychotic disorder Plan Mr. Nugent is a 26 year-old male with hx of psychosis and paranoid since February of this year. 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 Pt appears internally preoccupied, very suspicious, guarded, paranoid and not forthcoming with extend of delusional content. We discussed risks, benefits and alternative treatment options PLAN 1. Admit to M3, Sect 12b , 15 minutes checks 2. Offer risperidone, pt understands he can decline. 3. Obtain collateral information 4. Aftercare planning. 07/12 continue current tx. offer risperidone but pt understand he can refuse. significant concern as to pt not being fully forthcoming with extend of delusions, he is internally preoccupied, although he denies hearing voices. Concern that as long as he is severely psychotic risk of harming self is high. 07/13 continue tx. petition sent to court, pt currently on sect 7, pending court hearing. 07/14 Continue tx, change risperdal to liquid formulation to promote adherence 07/15 monitor risperdal for benefit 07/16 continue tx. 07/17 continue risperidone 1mg po daily and 2mg po qhs. 07/18 continu tx. I spent minutes with the patient and/or on the patient floor today, greater than?50% of which was spent counseling/coordinating care. Reason for contiued inpatient stay Substantial Risk for: harm to self and inability to function
[2022-07-18 19:00] VITALS: BP 134/64; PULSE 102; RESP 20; TEMP 36.6; O2SAT 98
[2022-07-18] MEDS: risperiDONE Oral Sol 1 MG/ML SOLUTION 2 MG PO (22:02)
[2022-07-19 06:00] VITALS: BP 117/69; PULSE 100; RESP 18; TEMP 37.7; O2SAT 100
[2022-07-19 07:00] VITALS: BMI 25.8
--- NOTE | 2022-07-19 07:29 | HO.PSYCHPN ---
Subjective Subjective Date of Service: 07/19/22 Reason For Visit: F 31 Unspecified Schizophrenia Spectrum and Other Subjective Notes: Section 7 Interim History: Pt much less guarded. He is more forthcoming with psych symptoms stating that voices are still there. He denies SI/HI. Pt denies side effects with medication, but would like to take it mostly at night. Pt visible on the unit, attending groups. No behavioral concerns. Medication Compliance: Yes Side effects from medications: No Review of Systems Review of Systems General: No fevers, malaise, unintentional weight loss HEENT: No blurred vision, diplopia. No sore throat, nasal congestion, rhinorrhea, sinus pain, ear pain Cardiovascular: No chest pain, palpitations, or leg edema Respiratory: No shortness of breath, wheezing, cough GI: No abdominal pain, nausea, vomiting, diarrhea, constipation, melena, hematochezia : No dysuria, hematuria, increased urinary frequency, decreased urinary output MSK: No myalgia, back pain Neuro: No headaches, weakness, paresthesias Psych: +anxiety Skin: No rashes or lesions Yes all other systems are reviewed and are negative Mental Status Exam Mental Status Exam Narrative: Appearance: casually groomed, fair hygiene, in NAD behavior: guarded and suspicious Psychomotor: restless at times but no overt agitation or retardation noted Speech: clear, delayed in response rate, spontaneous TP: thought blocking TC: having intrusive thoughts, worried about state of the world and thinks world will be better without him AH/VH: denies but appears internally preoccupied Delusions: appears suspicious, paranoid Mood: fine Affect: constricted, fearful, hypervigilant Insight/judgment: poor x 2. Memory/cog: alert, oriented x 3 Diagnostics Vital Signs (24Hr): Vital Signs - 24 hr 07/19/22 18:00 Temperature 98.8 F Pulse Rate 104 H Blood Pressure 118/68 Pulse Oximetry 99 Oxygen Delivery Method Room Air BMI result Body Mass Index 25.8 Medications Medications Current Medications Acetaminophen (Acetaminophen 325 Mg Tablet) 650 mg PO Q6H PRN PRN Reason: Headache/Pain Mild Scale (1-3) Al Hydroxide/Mg Hydroxide (Magnesium Hydrox/Alum Hydrox 30 Ml Oral.Susp) 30 ml PO Q6H PRN PRN Reason: Heartburn/Nausea Clonidine HCl (Clonidine Hcl 0.1 Mg Tablet) 0.1 mg PO BID PRN; Protocol PRN Reason: hyperarousal, anxiety Last Admin: 07/12/22 21:06 Dose: 0.1 mg Hydroxyzine HCl (Hydroxyzine Hcl 25 Mg Tablet) 25 mg PO Q6H PRN PRN Reason: Anxiety Magnesium Hydroxide (Milk Of Magnesia 30 Ml Oral.Susp) 30 ml PO DAILY PRN PRN Reason: Constipation Risperidone (Risperidone 0.5 Mg Tablet) 0.5 mg PO BID PRN PRN Reason: paranoia, agitation, psychosis Risperidone (Risperidone Oral Keerthi 1 Mg/Ml Solution) 3 mg PO BEDTIME ACE Last Admin: 07/19/22 22:19 Dose: 3 mg Trazodone HCl (Trazodone Hcl 50 Mg Tablet) 50 mg PO BEDTIME PRN PRN Reason: Insomnia Allergies Allergies Allergy/AdvReac Type Severity Reaction Status Date / Time No Known Allergies Allergy Verified 07/10/22 22:51 Assessment & Plan Assessment & Plan (1) Schizophrenia, acute: Status: Acute Code(s): F23 - Brief psychotic disorder Plan Mr. Nugent is a 26 year-old male with hx of psychosis and paranoid since February of this year. 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 Pt appears internally preoccupied, very suspicious, guarded, paranoid and not forthcoming with extend of delusional content. We discussed risks, benefits and alternative treatment options PLAN 1. Admit to M3, Sect 12b , 15 minutes checks 2. Offer risperidone, pt understands he can decline. 3. Obtain collateral information 4. Aftercare planning. 07/12 continue current tx. offer risperidone but pt understand he can refuse. significant concern as to pt not being fully forthcoming with extend of delusions, he is internally preoccupied, although he denies hearing voices. Concern that as long as he is severely psychotic risk of harming self is high. 07/13 continue tx. petition sent to court, pt currently on sect 7, pending court hearing. 07/14 Continue tx, change risperdal to liquid formulation to promote adherence 07/15 monitor risperdal for benefit 07/16 continue tx. 07/17 continue risperidone 1mg po daily and 2mg po qhs. 07/18 continu tx. 07/19 switched risperidone to 3mg po qhs. per pt request. I spent minutes with the patient and/or on the patient floor today, greater than?50% of which was spent counseling/coordinating care. Reason for contiued inpatient stay Substantial Risk for: harm to self and inability to function
[2022-07-19 18:00] VITALS: BP 118/68; PULSE 104; TEMP 37.1; O2SAT 99
[2022-07-19] MEDS: risperiDONE Oral Sol 1 MG/ML SOLUTION 3 MG PO (22:19)
[2022-07-20 06:00] VITALS: BP 131/62; PULSE 110; RESP 6; TEMP 36.6; O2SAT 99
--- NOTE | 2022-07-20 12:14 | HO.PSYCHPN ---
Subjective Subjective Date of Service: 07/20/22 Reason For Visit: F 31 Unspecified Schizophrenia Spectrum and Other Subjective Notes: Section 7 Interim History: Pt reports sleeping well. Less self dialoguing. Pt still with some insight but limited does not think he needed to be here or take medications. He denies SI/HI. More visible on the unit, attending some groups. He denies side effects with medications and hopes to be discharged soon. Medication Compliance: Yes Side effects from medications: No Attending Groups: Yes Review of Systems Review of Systems General: No fevers, malaise, unintentional weight loss HEENT: No blurred vision, diplopia. No sore throat, nasal congestion, rhinorrhea, sinus pain, ear pain Cardiovascular: No chest pain, palpitations, or leg edema Respiratory: No shortness of breath, wheezing, cough GI: No abdominal pain, nausea, vomiting, diarrhea, constipation, melena, hematochezia : No dysuria, hematuria, increased urinary frequency, decreased urinary output MSK: No myalgia, back pain Neuro: No headaches, weakness, paresthesias Psych: +anxiety Skin: No rashes or lesions Yes all other systems are reviewed and are negative Mental Status Exam Mental Status Exam Narrative: Appearance: casually groomed, fair hygiene, in NAD behavior: guarded and suspicious Psychomotor: restless at times but no overt agitation or retardation noted Speech: clear, delayed in response rate, spontaneous TP: thought blocking TC: having intrusive thoughts, worried about state of the world and thinks world will be better without him AH/VH: denies but appears internally preoccupied Delusions: appears suspicious, paranoid Mood: fine Affect: constricted, fearful, hypervigilant Insight/judgment: poor x 2. Memory/cog: alert, oriented x 3 Diagnostics Vital Signs (24Hr): Vital Signs - 24 hr 07/19/22 18:00 07/20/22 06:00 Temperature 98.8 F 97.8 F Pulse Rate 104 H 110 H Respiratory Rate 6 L Blood Pressure 118/68 131/62 Pulse Oximetry 99 99 Oxygen Delivery Method Room Air Room Air BMI result Body Mass Index 25.8 Medications Medications Current Medications Acetaminophen (Acetaminophen 325 Mg Tablet) 650 mg PO Q6H PRN PRN Reason: Headache/Pain Mild Scale (1-3) Al Hydroxide/Mg Hydroxide (Magnesium Hydrox/Alum Hydrox 30 Ml Oral.Susp) 30 ml PO Q6H PRN PRN Reason: Heartburn/Nausea Clonidine HCl (Clonidine Hcl 0.1 Mg Tablet) 0.1 mg PO BID PRN; Protocol PRN Reason: hyperarousal, anxiety Last Admin: 07/12/22 21:06 Dose: 0.1 mg Hydroxyzine HCl (Hydroxyzine Hcl 25 Mg Tablet) 25 mg PO Q6H PRN PRN Reason: Anxiety Magnesium Hydroxide (Milk Of Magnesia 30 Ml Oral.Susp) 30 ml PO DAILY PRN PRN Reason: Constipation Risperidone (Risperidone 0.5 Mg Tablet) 0.5 mg PO BID PRN PRN Reason: paranoia, agitation, psychosis Risperidone (Risperidone Oral Keerthi 1 Mg/Ml Solution) 3 mg PO BEDTIME ACE Last Admin: 07/19/22 22:19 Dose: 3 mg Trazodone HCl (Trazodone Hcl 50 Mg Tablet) 50 mg PO BEDTIME PRN PRN Reason: Insomnia Allergies Allergies Allergy/AdvReac Type Severity Reaction Status Date / Time No Known Allergies Allergy Verified 07/10/22 22:51 Assessment & Plan Assessment & Plan (1) Schizophrenia, acute: Status: Acute Code(s): F23 - Brief psychotic disorder Plan Mr. Nugent is a 26 year-old male with hx of psychosis and paranoid since February of this year. 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 Pt appears internally preoccupied, very suspicious, guarded, paranoid and not forthcoming with extend of delusional content. We discussed risks, benefits and alternative treatment options PLAN 1. Admit to M3, Sect 12b , 15 minutes checks 2. Offer risperidone, pt understands he can decline. 3. Obtain collateral information 4. Aftercare planning. 07/12 continue current tx. offer risperidone but pt understand he can refuse. significant concern as to pt not being fully forthcoming with extend of delusions, he is internally preoccupied, although he denies hearing voices. Concern that as long as he is severely psychotic risk of harming self is high. 07/13 continue tx. petition sent to court, pt currently on sect 7, pending court hearing. 07/14 Continue tx, change risperdal to liquid formulation to promote adherence 07/15 monitor risperdal for benefit 07/16 continue tx. 07/17 continue risperidone 1mg po daily and 2mg po qhs. 07/18 continu tx. 07/19 switched risperidone to 3mg po qhs. per pt request. 07/20 continue tx. dc saturday morning prior to court if pt continues to improve. I spent minutes with the patient and/or on the patient floor today, greater than?50% of which was spent counseling/coordinating care. Reason for contiued inpatient stay Substantial Risk for: harm to self
[2022-07-20 22:50] VITALS: BP 130/74; PULSE 100; RESP 18; TEMP 36.8; O2SAT 100
[2022-07-20] MEDS: risperiDONE Oral Sol 1 MG/ML SOLUTION 3 MG PO (22:56)
--- NOTE | 2022-07-21 10:21 | P.PNPSI_ITS ---
Subjective Subjective Date of Service: 07/21/22 Reason For Visit: F 31 Unspecified Schizophrenia Spectrum and Other Interim History: Pt mostly in room. He reports he has been reading. He is visible at times. Somewhat withdrawn. Pt reports no VH/AH but do suspect some residual paranoid an d auditory hallucinations are present. However, pt much less internally preoccupied with some insight into symptoms and able to reflect on incidents of holding knife which was prompted by delusion related to him having to sacrifies himself for the world. Medication Compliance: Yes Side effects from medications: No Review of Systems Review of Systems General: No fevers, malaise, unintentional weight loss HEENT: No blurred vision, diplopia. No sore throat, nasal congestion, rhinorrhea, sinus pain, ear pain Cardiovascular: No chest pain, palpitations, or leg edema Respiratory: No shortness of breath, wheezing, cough GI: No abdominal pain, nausea, vomiting, diarrhea, constipation, melena, hematochezia : No dysuria, hematuria, increased urinary frequency, decreased urinary output MSK: No myalgia, back pain Neuro: No headaches, weakness, paresthesias Psych: +anxiety Skin: No rashes or lesions Yes all other systems are reviewed and are negative Mental Status Exam Mental Status Exam Narrative: Appearance: casually groomed, fair hygiene, in NAD behavior: guarded and suspicious Psychomotor: restless at times but no overt agitation or retardation noted Speech: clear, delayed in response rate, spontaneous TP: thought blocking TC: having intrusive thoughts, worried about state of the world and thinks world will be better without him AH/VH: denies but appears internally preoccupied Delusions: appears suspicious, paranoid Mood: fine Affect: constricted, fearful, hypervigilant Insight/judgment: poor x 2. Memory/cog: alert, oriented x 3 Diagnostics Vital Signs (24Hr): Vital Signs - 24 hr 07/22/22 20:36 Temperature 98.1 F Pulse Rate 113 H Respiratory Rate 16 Blood Pressure 106/59 L Pulse Oximetry 99 Oxygen Delivery Method Room Air BMI result Body Mass Index 25.8 Medications Medications Current Medications Acetaminophen (Acetaminophen 325 Mg Tablet) 650 mg PO Q6H PRN PRN Reason: Headache/Pain Mild Scale (1-3) Al Hydroxide/Mg Hydroxide (Magnesium Hydrox/Alum Hydrox 30 Ml Oral.Susp) 30 ml PO Q6H PRN PRN Reason: Heartburn/Nausea Clonidine HCl (Clonidine Hcl 0.1 Mg Tablet) 0.1 mg PO BID PRN; Protocol PRN Reason: hyperarousal, anxiety Last Admin: 07/12/22 21:06 Dose: 0.1 mg Hydroxyzine HCl (Hydroxyzine Hcl 25 Mg Tablet) 25 mg PO Q6H PRN PRN Reason: Anxiety Magnesium Hydroxide (Milk Of Magnesia 30 Ml Oral.Susp) 30 ml PO DAILY PRN PRN Reason: Constipation Risperidone (Risperidone 0.5 Mg Tablet) 0.5 mg PO BID PRN PRN Reason: paranoia, agitation, psychosis Risperidone (Risperidone Oral Keerthi 1 Mg/Ml Solution) 3 mg PO BEDTIME ACE Trazodone HCl (Trazodone Hcl 50 Mg Tablet) 50 mg PO BEDTIME PRN PRN Reason: Insomnia Allergies Allergies Allergy/AdvReac Type Severity Reaction Status Date / Time No Known Allergies Allergy Verified 07/10/22 22:51 Assessment & Plan Assessment & Plan (1) Schizophrenia, acute: Status: Acute Code(s): F23 - Brief psychotic disorder Plan Mr. Nugent is a 26 year-old male with hx of psychosis and paranoid since February of this year. 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 Pt appears internally preoccupied, very suspicious, guarded, paranoid and not forthcoming with extend of delusional content. We discussed risks, benefits and alternative treatment options PLAN 1. Admit to M3, Sect 12b , 15 minutes checks 2. Offer risperidone, pt understands he can decline. 3. Obtain collateral information 4. Aftercare planning. 07/12 continue current tx. offer risperidone but pt understand he can refuse. significant concern as to pt not being fully forthcoming with extend of delusions, he is internally preoccupied, although he denies hearing voices. Concern that as long as he is severely psychotic risk of harming self is high. 07/13 continue tx. petition sent to court, pt currently on sect 7, pending court hearing. 07/14 Continue tx, change risperdal to liquid formulation to promote adherence 07/15 monitor risperdal for benefit 07/16 continue tx. 07/17 continue risperidone 1mg po daily and 2mg po qhs. 07/18 continu tx. 07/19 switched risperidone to 3mg po qhs. per pt request. 07/20 continue tx. dc saturday morning prior to court if pt continues to improve. 07/21 continue tx. I spent minutes with the patient and/or on the patient floor today, greater than?50% of which was spent counseling/coordinating care. Reason for contiued inpatient stay Substantial Risk for: inability to function
[2022-07-21 22:30] VITALS: BP 122/82; PULSE 114; RESP 18; TEMP 36.6; O2SAT 100
[2022-07-21] MEDS: risperiDONE Oral Sol 1 MG/ML SOLUTION 3 MG PO (22:31)
--- NOTE | 2022-07-22 10:01 | HO.PSYCHPN ---
Subjective Subjective Date of Service: 07/22/22 Reason For Visit: F 31 Unspecified Schizophrenia Spectrum and Other Subjective Notes: Section 7 Interim History: Pt more visible today. He denies VH/AH but do suspect residual along with some of delusions. However, pt improved enough to be safe to be discharge tomorrow in that he is able to show increase insight as to how it doesn't make sense that he had to sacrify himself for the world. He denies SI/HI. Medication Compliance: Yes Review of Systems Review of Systems General: No fevers, malaise, unintentional weight loss HEENT: No blurred vision, diplopia. No sore throat, nasal congestion, rhinorrhea, sinus pain, ear pain Cardiovascular: No chest pain, palpitations, or leg edema Respiratory: No shortness of breath, wheezing, cough GI: No abdominal pain, nausea, vomiting, diarrhea, constipation, melena, hematochezia : No dysuria, hematuria, increased urinary frequency, decreased urinary output MSK: No myalgia, back pain Neuro: No headaches, weakness, paresthesias Psych: +anxiety Skin: No rashes or lesions Yes all other systems are reviewed and are negative Mental Status Exam Mental Status Exam Narrative: Appearance: casually groomed, fair hygiene, in NAD behavior: guarded and suspicious Psychomotor: restless at times but no overt agitation or retardation noted Speech: clear, delayed in response rate, spontaneous TP: thought blocking TC: having intrusive thoughts, worried about state of the world and thinks world will be better without him AH/VH: denies but appears internally preoccupied Delusions: appears suspicious, paranoid Mood: fine Affect: constricted, fearful, hypervigilant Insight/judgment: poor x 2. Memory/cog: alert, oriented x 3 Diagnostics Vital Signs (24Hr): Vital Signs - 24 hr 07/22/22 20:36 Temperature 98.1 F Pulse Rate 113 H Respiratory Rate 16 Blood Pressure 106/59 L Pulse Oximetry 99 Oxygen Delivery Method Room Air BMI result Body Mass Index 25.8 Medications Medications Current Medications Acetaminophen (Acetaminophen 325 Mg Tablet) 650 mg PO Q6H PRN PRN Reason: Headache/Pain Mild Scale (1-3) Al Hydroxide/Mg Hydroxide (Magnesium Hydrox/Alum Hydrox 30 Ml Oral.Susp) 30 ml PO Q6H PRN PRN Reason: Heartburn/Nausea Clonidine HCl (Clonidine Hcl 0.1 Mg Tablet) 0.1 mg PO BID PRN; Protocol PRN Reason: hyperarousal, anxiety Last Admin: 07/12/22 21:06 Dose: 0.1 mg Hydroxyzine HCl (Hydroxyzine Hcl 25 Mg Tablet) 25 mg PO Q6H PRN PRN Reason: Anxiety Magnesium Hydroxide (Milk Of Magnesia 30 Ml Oral.Susp) 30 ml PO DAILY PRN PRN Reason: Constipation Risperidone (Risperidone 0.5 Mg Tablet) 0.5 mg PO BID PRN PRN Reason: paranoia, agitation, psychosis Risperidone (Risperidone Oral Keerthi 1 Mg/Ml Solution) 3 mg PO BEDTIME ACE Trazodone HCl (Trazodone Hcl 50 Mg Tablet) 50 mg PO BEDTIME PRN PRN Reason: Insomnia Allergies Allergies Allergy/AdvReac Type Severity Reaction Status Date / Time No Known Allergies Allergy Verified 07/10/22 22:51 Assessment & Plan Assessment & Plan (1) Schizophrenia, acute: Status: Acute Code(s): F23 - Brief psychotic disorder Plan Mr. Nugent is a 26 year-old male with hx of psychosis and paranoid since February of this year. 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 Pt appears internally preoccupied, very suspicious, guarded, paranoid and not forthcoming with extend of delusional content. We discussed risks, benefits and alternative treatment options PLAN 1. Admit to M3, Sect 12b , 15 minutes checks 2. Offer risperidone, pt understands he can decline. 3. Obtain collateral information 4. Aftercare planning. 07/12 continue current tx. offer risperidone but pt understand he can refuse. significant concern as to pt not being fully forthcoming with extend of delusions, he is internally preoccupied, although he denies hearing voices. Concern that as long as he is severely psychotic risk of harming self is high. 07/13 continue tx. petition sent to court, pt currently on sect 7, pending court hearing. 07/14 Continue tx, change risperdal to liquid formulation to promote adherence 07/15 monitor risperdal for benefit 07/16 continue tx. 07/17 continue risperidone 1mg po daily and 2mg po qhs. 07/18 continu tx. 07/19 switched risperidone to 3mg po qhs. per pt request. 07/20 continue tx. dc saturday morning prior to court if pt continues to improve. 07/21 continue tx. 07/22 continue tx. dc tomorrow. I spent minutes with the patient and/or on the patient floor today, greater than?50% of which was spent counseling/coordinating care. Reason for contiued inpatient stay Substantial Risk for: inability to function and stable for discharge
[2022-07-22 20:36] VITALS: BP 106/59; PULSE 113; RESP 16; TEMP 36.7; O2SAT 99
[2022-07-22] MEDS: risperiDONE Oral Sol 1 MG/ML SOLUTION 3 MG PO (22:12)
--- NOTE | 2022-07-23 11:03 | PM.PSYDC ---
DS: Providers Provider Date of Service: 07/23/22 Date of admission: 07/10/22 22:11 Primary care physician: Unknown Physician Consults: 07/10/22 22:56 Consult to Hospitalist Routine Consulting Provider: Hospitalist Reason For Exam: admit from [facility] DS: Diagnosis Discharge Diagnosis (1) Schizophrenia, acute: Status: Acute DS: Medications Discharge Medications Home Medications: Previous Rx's Medication Instructions Recorded risperidone 3 mg tablet 3 mg PO BEDTIME #30 tabs 07/23/22 trazodone 50 mg tablet 50 mg PO BEDTIME PRN Insomnia #30 07/23/22 tabs Mental Status Exam Mental Status Exam Narrative: Appearance: casually groomed, good hygiene, in NAD behavior: cooperative, less guarded Psychomotor: no overt agitation or retardation noted Speech: clear, regular response rate/rhythm/volume, spontaneous TP: linear TC: wanting to go home, continue treatment AH/VH: denies but appears less internally preoccupied Delusions: residual suspiciousness Mood: fine Affect: constricted but congruent Insight/judgment: improving x 2. Memory/cog: alert, oriented x 3 DS: Summary Hospital Course Hospital Course: Subjective Notes: Skinner Warning (given and understood) and Section 12B Narrative: Mr. Nugent is a 26 year-old male who was brought in by father to [facility] ED as pt reported suicidal ideation with plan to cut his wrist. Pt apparently has been presenting with paranoid and psychosis since February of this year. He recently admitted to [facility] on 06/17/22 in setting of psychosis, and suicidal ideation. In the ED, his utox is positive for cannabis. On the unit, pt reports he has been worried about the state of the world. Pt presents as suspicious and asks to verify information with him and he suspect records are not accurate. Pt explains that he worries about climate change and future of planet [place]. I then reports that he thinks the world will be better off because of him. When asked in what way, pt states he thinks problems will be solve even climate change if he is not around. Pt denies any plan or intent to harm himself at this point. He reports he had just one intrusive thought when he was holding the knife to his wrist when his father stopped him and asked him to bring him to the hospital. He denies that he heard a voice telling him to hurt himself. He also denies visual or auditory hallucinations but throughout our interview, pt was mumbling and whispering things to someone who was not there. He later reported that his intrusive thought might have been a relationship issue. He mentions a partner but became paranoid when asked the name stating why do you need to know all this information? Pt reports he has not notice any change in behavior. 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 He reports he is sure I will not have these intrusive thoughts to harm myself. He states he does not want to be here in the hospital and that he can follow up with treatment in the community. Pt was given skinner warning and shows understanding. Past Psychiatric History: Inpt: jeramie 06/17/2022 Medical Evaluation Reviewed: Yes HOSPITAL COURSE On the unit, pt was admitted on a CV, he signed a 3 day and placed on 15 minutes checks for safety. Pt presented as guarded, self dialoguing. Pt initially minimized events leading to this psych admission and one that occurred under similar circumstances less than 3 weeks ago. Pt reported that he thought he had to sacrify himself for the world to end climate change and other ongoing problems of the world. He reported hearing voices telling him to harm himself. He initially declined taking any medications, stating he did not have any mental illness. Petition for involuntary treatment was filed to the court as pt continued to have CAH although he denied any plan or intent to harm himself. He was also not able to explain how he would keep himself safe with the voices as twice this month he was found by his parents holding a knife to his forearm. Once petition for involuntary treatment was file, pt then agreed to start risperidone. His affect gradually presented as much less guarded, much less talking to the voices even while meeting with staff and this bond underwriter. He showed increase insight into psychiatric treatment and need for medication. He was more visible on the unit and able to participate more appropriately in groups. His family came to visit him several times and meeting were held to discussed his progress. Given that pt showed significant improvement in terms of hallucinations and delusions, he was discharged prior to court hearing on Saturday. Parents denied any safety concern at that time and agreed that pt appeared in much improved condition. There were no incidences of disruptive behaviors nor use of restraints. Time spent discussing smoking cessation with patient: 3 to 10 minutes Status at Discharge Cognitive/behavioral status at discharge: Pt with brighter, less guarded and suspicious affect. No SI/HI. residual Ah and some paranoia noted but pt showed increased insight into psychiatric symptoms and need for treatment. There were no incidences of disruptive behaviors nor use of restraints. No signs of aggression towards self or others. Pt sleeping and eating better. His thought process much more organized and coherent. 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 Please follow up if you do not receive a call with your appointments) Jose Daniel Savage PA-C [Physician Camp Director] - 1 Week (Provider will give patient a call to book follow up appointment ) Discharge Medications: New risperidone 3 mg tablet 3 mg PO BEDTIME Qty: 30 0RF trazodone 50 mg Tablet 50 mg PO BEDTIME PRN (Reason: Insomnia) Qty: 30 0RF Discharge Orders: Discharge Order (Routine); Ordered 07/23/22 Ordered By: Elisa Grady Diet: Regular diet Activity on Discharge: As tolerated Stand Alone Forms: Patient Portal Discharge page, Community Support Care Plan Goals: 1. Maintain mood 2. No SI/HI 3. Less delusions, less AH Health Concerns: Follow up with PCP Plan of Treatment: 1. Take medications as prescribed. 2. GO to nearest ED or call 911 in event of emergency Assessment: Pt with less constricted affect. Less guarded, less paranoid. Less AH, but residual symptoms noted/ No signs of aggression towards self or others. No SI/HI. Discharge Date/Time: 07/23/22 11:20
--- NOTE | 2022-07-23 11:32 | PC.NURSE ---
Patient is A & Ox4. Patient denies SI/HI/VH. Reports AH is less than at time of admission. Reported an agreement with discharge teachings and instructions. Denies acute physical complaints.
== END 2022-07-23 11:20 | disposition home or self-care (01) | DRG 750 ==
PROVIDERS: Registered Nurse; Admitting Provider Psychiatry & Neurology Psychiatry; Visit Provider Social Worker
DX: F20.9 Schizophrenia, unspecified (principal); R00.0 Tachycardia, unspecified; Z23 Encounter for immunization; Z79.899 Other long term (current) drug therapy
CPT/HCPCS: 36415; 80061; 82607; 82746; 83036; 83735; 84439; 84443; 90686